=== PATIENT | female | born 1980 | race Caucasian/White ===

== ENCOUNTER → 2019-11-26 10:55 | Outpatient (CLI) | payer OTHER, SELFPAY ==
--- NOTE | ~2019-11-26 | XR_ITS ---
EXAMINATION: XR chest 2V DATE: 11/26/2019 11:13 INDICATION: Cough, central/anterior chest pain, fever TECHNIQUE: Frontal and lateral views of the chest are obtained COMPARISON: None available FINDINGS: The lungs are free of acute opacities. There is no pleural effusion or pneumothorax. The ca rdiomediastinal silhouette is normal. There is lower thoracic levocurvature. IMPRESSION: 1. No acute cardiopulmonary abnormality. Reviewed, dictated and finalized at location B.
== END ==
PROVIDERS: PCP Nurse Practitioner Family; Visit Provider Family Medicine
DX: R05 Cough (principal)
CPT/HCPCS: 71046

== ENCOUNTER 2020-01-23 11:02 | Outpatient (CLI) | payer OTHER, SELFPAY ==
--- NOTE | ~2020-01-23 | CT_ITS ---
EXAMINATION: CT brain wo con DATE: 01/23/2020 11:24 INDICATION: Muscle weakness. Unspecified speech disturbance. Numbness at the fingers. TECHNIQUE: Computed tomography (CT) of the head was performed without intravenous contrast. Sagittal and coronal reconstructions were performed. The mA was adjusted according to patient size. Iterative reconstruction technique was employed. The dose-length product was 605.33 mGy-cm. COMPARISON: None FINDINGS: No acute intracranial hemorrhage, acute infarction or abnormal extra axial fluid collection. Ventricl es are normal and symmetric. No mass/mass effect. The orbits, paranasal sinuses and mastoid air cells are normal. IMPRESSION: 1. Normal head CT. Reviewed, dictated and finalized at location A. IMPRESSION: 1. Normal head CT.
== END 2020-01-23 11:03 | disposition home or self-care (01) ==
PROVIDERS: PCP Nurse Practitioner Family; Visit Provider Nurse Practitioner Family
DX: M79.89 Other specified soft tissue disorders (principal); R47.9 Unspecified speech disturbances
CPT/HCPCS: 70450

== ENCOUNTER 2020-03-10 09:11 | Outpatient (CLI) | payer OTHER, SELFPAY ==
[2020-03-10 09:44] LABS: Basophils Absolute Auto 0.1 K/mm3 (0.0-0.1); Eosinophils Absolute Auto 0.5 K/mm3 (0-0.3); Eosinophils Percent Auto 5.5 % (0-4.4); Hematocrit 42.8 % (37.0-47.0); Hemoglobin 14.1 g/dL (12.0-15.0); Immature Granulocyte Absolute 0.08 K/mm3 (0.00-0.031); Immature Granulocyte Percent A 0.9 % (0-0.5); Lymphocytes Absolute Auto 1.95 K/mm3 (0.9-3.2); Lymphocytes Percent Auto 22.3 % (18.3-44.2); Mean Corpuscular HGB Conc 32.9 g/dl (32-36); Mean Corpuscular Hemoglobin 29.3 pg (26-34); Mean Platelet Volume 9.9 fl (7.4-10.4); Monocytes Absolute Auto 0.6 K/mm3 (0.1-0.6); Monocytes Percent Auto 6.6 % (2.6-8.5); Neutrophils Absolute Auto 5.6 K/mm3 (1.3-6.7); Neutrophils Percent Auto 63.7 % (45.5-73.1); Platelet Count Result 305 k/mm3 (150-375); Red Blood Count 4.81 M/mm3 (4.2-5.4); Red Cell Distribution Width 12.6 % (11.5-14.5); White Blood Count 8.7 K/mm3 (4.5-10.0)
[2020-03-10 12:22] LABS: Add Urine Microscopic? NO; Appearance Urine Clear (Clear); Bilirubin Urine Negative (Negative); Blood Urine Negative (Negative); Color Urine Yellow (Yellow); Glucose Urine UA Negative (Negative); Ketones Urine Negative (Negative); Leukocyte Esterase Ur Negative LEU/UL (Negative); Nitrate Urine Negative (Negative); Protein Urine Negative (Negative); Specific Grav Ur 1.014 (1.001-1.035); Urobilinogen Urine Negative mg/dL (<2.0)
[2020-03-10 12:37] LABS: Alanine Aminotransferase 12 U/L (4-35); Albumin Level 4.4 g/dL (3.5-5.1); Alkaline Phosphatase 64 U/L (38-126); Anion Gap 12.5 mmol/L (7-16); Aspartate Amino Transferase 15 U/L (14-36); Bilirubin,Total 0.2 mg/dL (0.2-1.3); Blood Urea Nitrogen 11 mg/dL (7-17); CRP 0.8 mg/dL (<1.0); Calcium 9.1 mg/dL (8.4-10.2); Carbon Dioxide 24 mmol/L (22-30); Chloride 105 mmol/L (98-107); Estimated Glomerular Filt Rate > 60; Glucose 95 mg/dL (65-105); Potassium 4.5 mmol/L (3.4-5.0); Sodium 137 mmol/L (137-145)
[2020-03-10 12:51] LABS: T4 Thyroxine 7.25 ug/dL (5.53-11.0)
[2020-03-10 13:01] LABS: Complement C3 131 mg/dL (88-165); Rheumatoid Factor < 8.6 IU/ML (<12)
[2020-03-10 13:10] LABS: Erythrocyte Sedimentation Rate 17 mm/hr (0-20)
[2020-03-11 07:26] LABS: Rapid Plasma Reagin Non-Reactive (NonReactive)
[2020-03-13 02:47] LABS: NIL 0.01 IU/mL; Quantiferon TB Plus, 1T NEGATIVE (NEGATIVE)
[2020-03-14 12:03] LABS: Anti Cardio Antibody IgM <12 MPL (<=12); Anti Cardiolipin Antibody IgA <11 APL (<=11); Anti Cardiolipin Antibody IgG <14 GPL (<=14)
[2020-03-14 22:37] LABS: SS-A <1.0; SS-B <1.0
[2020-03-15 05:28] LABS: Thyroglobulin 62.9 ng/mL (2.8-40.9); Thyroglobulin Antibodies <1 IU/mL (<=1); Thyroid Peroxidase Antibodies 15 IU/mL (<9)
[2020-03-15 09:28] LABS: Triiodothyronine T3 Free 2.6 pg/mL (2.3-4.2)
[2020-03-15 14:53] LABS: Anti Cyclic Citrullinated Pept <16 Units (<20)
[2020-03-15 22:43] LABS: Lupus dRVVT 1:1 Mix Interpreta Not Indicated; Lupus dRVVT Screen 40 sec (<=45); PTT-LA Screen 38 sec (<=40)
[2020-03-16 20:17] LABS: ANCA Screen Negative (Negative)
[2020-03-17 05:14] LABS: Angiotensin Converting Enzyme 41 U/L (9-67)
[2020-03-17 21:54] LABS: SM Antibody <1.0; SM/RNP Antibody <1.0
== END 2020-03-10 09:12 | disposition home or self-care (01) ==
LOC: ANHLAB 09:14
PROVIDERS: PCP Nurse Practitioner Family; Visit Provider Internal Medicine
DX: M19.90 Unspecified osteoarthritis, unspecified site (principal); R06.00 Dyspnea, unspecified; R50.9 Fever, unspecified; R76.8 Other specified abnormal immunological findings in serum
CPT/HCPCS: 36415; 80053; 81003; 82164; 84432; 84436; 84481; 85025; 85613; 85652; 85730; 86021; 86140; 86146; 86147; 86160; 86200; 86225; 86235; 86376; 86430; 86480; 86592; 86800

== ENCOUNTER 2020-03-13 14:30 | Outpatient (CLI) | payer OTHER, SELFPAY ==
--- NOTE | ~2020-03-13 | CT_ITS ---
EXAMINATION: CT chest high resolution wo ri DATE: 03/13/2020 14:49 INDICATION: Shortness of breath, cough TECHNIQUE: Computed tomography (CT) of the chest was performed without intravenous contrast. The dose -length product (DLP) was 151.88 mGy-cm. Automated exposure control and iterative reconstruction tech nique were employed. COMPARISON: None FINDINGS: The lungs are free of acute opacities. Right lung nodules measuring up to [address] old granulomatous disease. There is no pleural effusion or pneumothorax. No pathologically enlarge d thoracic lymph nodes are identified. The heart size is normal. The visualized osseous structures ar e unremarkable. IMPRESSION: 1. No CT correlate for the patient's symptoms. Reviewed, dictated and finalized at location B.
== END 2020-03-13 14:31 | disposition home or self-care (01) ==
PROVIDERS: PCP Nurse Practitioner Family; Visit Provider Internal Medicine
DX: R06.00 Dyspnea, unspecified (principal)
CPT/HCPCS: 71250

== ENCOUNTER → 2020-05-28 11:27 | Outpatient (CLI) | payer OTHER, SELFPAY ==
--- NOTE | ~2020-05-28 | US_ITS ---
EXAMINATION: US thyroid DATE: 05/28/2020 12:10 INDICATION: Nontoxic goiter. TECHNIQUE: Multiple ultrasound images of the thyroid were obtained. COMPARISON: None. FINDINGS: The right thyroid lobe measures 5.9 x 2.0 x 2.0 cm. The left thyroid lobe measures 5.5 x 1.8 x 2.0 c m. There is diffuse heterogeneous decreased echogenicity with coarsened echotexture and with mildly i ncreased vascular flow throughout the thyroid. There is a 1.4 x 1.1 x 1.0 cm wider than tall solid hy poechoic nodule with poorly defined margins and without echogenic foci. (TI-RADS 4, moderately suspic ious , FNA if >=1.5 cm, annual followup is >1 cm) at the superior left thyroid lobe. IMPRESSION: 1. 1.4 cm TI-RADS 4 left thyroid nodule for which annual ultrasound follow-up would be recommended. 2. Enlarged heterogeneous and mildly hypervascular thyroid suggestive of thyroiditis. Reviewed, dictated and finalized at location B. IMPRESSION: 1. 1.4 cm TI-RADS 4 left thyroid nodule for which annual ultrasound follow-up w ould be recommended. 2. Enlarged heterogeneous and mildly hypervascular thyroid suggestive of thyroi ditis.
== END ==
PROVIDERS: PCP Nurse Practitioner Family; Visit Provider Internal Medicine Endocrinology, Diabetes & Metabolism
DX: E04.9 Nontoxic goiter, unspecified (principal)
CPT/HCPCS: 76536

== ENCOUNTER 2020-07-06 08:34 | Outpatient (CLI) | payer OTHER, SELFPAY ==
--- NOTE | 2020-07-08 09:56 | P.NEURO_ITS ---
Neurology EEG Report General Information Date of Study: 07/06/20 TEST eeg DIAGNOSIS Memory loss CONDITION OF RECORDING awake drowsy and sleep EEG NUMBER [id number] CLINICAL HISTORY patient reported she was sick back in October and believes it was COVID and now is experiencing brain fog and sometimes trouble in talking EEG DESCRIPTION basic resting occipital frequency consists of low to medium voltage 8 to 10 hertz per 2nd well-organized alpha rhythm admixed with minimal amount of low- voltage 15 to 18 hertz per 2nd beta activity. During drowsiness low-voltage beta activity seen diffusely admixed with waxing and waning posterior alpha rhy thm. Bilateral symmetrical sleep activity seen during sleep hyperventilation not done. Photic stimulation produced normal drive. Non paroxysmal. Nonfocal. Nonlateralizing. IMPRESSION Normal record
== END 2020-07-06 08:35 | disposition home or self-care (01) ==
PROVIDERS: PCP Nurse Practitioner Family; Visit Provider Psychiatry & Neurology Neurology
DX: R41.3 Other amnesia (principal)
CPT/HCPCS: 95816

== ENCOUNTER 2020-07-16 14:00 | Outpatient (CLI) | payer OTHER, SELFPAY ==
--- NOTE | ~2020-07-16 | MR_ITS ---
EXAMINATION: MR brain/brain stem wo con DATE: 07/16/2020 14:59 INDICATION: Memory loss. TECHNIQUE: Magnetic resonance imaging (MRI) of the brain and brainstem was performed without intraven ous contrast. Sequences included sagittal and axial T1-weighted FSE, axial diffusion-weighted FS EPI, axial T2*-weighted GRE, axial T2-weighted FLAIR Propeller, and axial T2-weighted Propeller. Apparent diffusion coefficient (ADC) maps were created. COMPARISON: Head CT 01/23/2020 FINDINGS: There is no intracranial hemorrhage, acute infarction, or abnormal intracranial mass lesion . The ventricles are normal in size. There is mild mucosal thickening in left maxillary sinus. The or bits are normal. The mastoid air cells are normal. IMPRESSION: 1. Normal brain. Reviewed, dictated and finalized at location A. WEAR PRODUCTION MACHINE OPERATOR IMPRESSION: 1. Normal brain.
== END 2020-07-16 14:01 | disposition home or self-care (01) ==
PROVIDERS: PCP Nurse Practitioner Family; Visit Provider Psychiatry & Neurology Neurology
DX: R41.3 Other amnesia (principal)
CPT/HCPCS: 70551

== ENCOUNTER 2020-10-02 12:37 | Outpatient (CLI) | payer OTHER, SELFPAY ==
--- NOTE | 2020-10-05 13:11 | WPDPFTINT ---
PFT Interpretation This is a pulmonary function test with pre and post-bronchodilator spirometry, plethysmography and diffusing capacity. The test was performed and results interpreted in accordance with the 2019 and 2005 ATS/ERS Task Force guidelines respectively using the Hayden/Polgerson reference equations. Findings: Spirometry: The contour of the inspiratory and expiratory flow tracing are normal. The pre bronchodilator FVC is 3.46 L, 92% predicted. The pre bronchodilator FEV1 is 2.77 L, 94% predicted. The FEV1: FVC ratio was 80%. The post bronchodilator FVC is 3.47 L, representing no change. The post bronchodilator FEV1 is 2.78 L, representing no change. Plethysmography: The total lung capacity is 4.59 L, 84% predicted. The residual volume is 1.13 L, 62% predicted. The functional residual capacity is 2.19 L, 77% predicted. Diffusing capacity: The absolute diffusion capacity is 19.9, 79% predicted. The diffusing capacity corrected for alveolar volume is 4.91, 113% predicted. Impression: The spirometry is normal without evidence of an obstructive abnormality. There is no significant improvement after inhaling a single dose of albuterol. The lung volumes are normal. The diffusing capacity is normal. There are no prior studies for comparison
== END 2020-10-02 12:38 | disposition home or self-care (01) ==
LOC: ANHPFT 12:38
PROVIDERS: PCP Nurse Practitioner Family; Visit Provider Nurse Practitioner
DX: J45.909 Unspecified asthma, uncomplicated (principal)
CPT/HCPCS: 94060; 94726; 94729

== ENCOUNTER 2021-03-31 11:54 | Emergency (ER) | payer OTHER, SELFPAY ==
--- NOTE | ~2021-03-31 | XR_ITS ---
EXAMINATION: XR finger 1st RT min 2V DATE: 03/31/2021 12:26 INDICATION: Right thumb pain. Injury. TECHNIQUE: 3 views of right thumb were obtained. COMPARISON: None. FINDINGS: Bone alignment is normal. No fracture. Joint spaces are well maintained. IMPRESSION: 1. Normal right thumb. Reviewed, dictated and finalized at location B. IMPRESSION: 1. Normal right thumb.
[2021-03-31 12:04] VITALS: BP 115/69; PULSE 86; RESP 16; TEMP 37.1; O2SAT 99
--- NOTE | 2021-03-31 13:34 | ED.UPPEXIN ---
HPI - Extremity Injury (Upper) General Chief Complaint: Extremity Injury, Upper Stated Complaint: swolllen rt thumb Source: patient and RN notes reviewed Limitations: no limitations History of Present Illness HPI narrative: The patient, who is right-handed, presents with right thumb pain. Patient states she jammed her thumb a day before, just pushing on a door latch/lock. She complains of mild pain especially of the flexor aspect that is worse with motion, better with rest, and the distal digit rests in a slightly y flexed/hammer position. No bleeding, deformity-there is mild swelling diffusely; discussed regardless of x-ray report that she should wear splint and see hand surgery in follow-up Related Data Home Medications Medication Instructions Recorded Confirmed albuterol sulfate [ProAir HFA] INHALATION 03/31/21 duloxetine mg PO 03/31/21 fluticasone propionate [Flovent INHALATION 03/31/21 HFA] levothyroxine [Tirosint] PO 03/31/21 levothyroxine [Tirosint] PO 03/31/21 omeprazole 03/31/21 Allergies Allergy/AdvReac Type Severity Reaction Status Date / Time ioversol Allergy Unknown rash Verified 03/31/21 12:03 Contrast Media Allergy Mild SNEEZING Uncoded 03/31/21 12:03 Review of Systems Review of Systems: General/Constitutional: No weight loss,fever Eyes: N0: Redness,discharge Ears/Nose/Throat: No: Epistaxis,ear discharge Respiratory: Denies: Hemoptysis Gastrointestinal: No Vomiting, Bleeding-rectal Skin: No Lumps, eruption Neurologic: No Focal Weakness,Sz Hematologic: Denies: Petechiae/Purpura Psychiatric: No: Suicida ideationl All Other Systems: Reviewed and Negative [facility] Past Medical History Medical History (Updated 03/31/21 @ 12:49 by Spenser Wright MD) Allergies MODESTA positive Dyspnea (~02/2020) Head ache Low grade fever Surgical History Surgical History H/O: hysterectomy History of removal of ovarian cyst Family History Family History Mother Multiple sclerosis Depression Anxiety Father High cholesterol Grandparent Alzheimer disease Grandparent Cancer Social History Social History Smoking status: Never smoker Alcohol intake: current Comments At time of signature, agree with nursing past medical, surgical, social and family history. There is no relevant family history pertinent to the presenting complaint Exam Narrative: General Appearance: Well appearing, conjunctiva clear Mouth/Throat: Normal appearing, Normal lips, Supple Respiratory: Airway patent, No respiratory distress MS-finger DIP: Nl strength (mostly intact, almost unlimited flexion/extension by pain), Tenderness (flexor, with mild decreased ROM), Swelling (diffusely), Other (no anterior drawer, no collateral laxity, no ulnar collateral laxity, no snuffbox tenderness] Skin: Warm, Dry, Normal color Neurological: A&O x3, , Normal affect Course Course Emergency Course: Films visualized, interpreted by radiologist, agree, normal see report Vital Signs Vital signs: Vital Signs Temperature 98.8 F 03/31/21 12:04 Pulse Rate 86 03/31/21 12:04 Respiratory Rate 16 03/31/21 12:04 Blood Pressure 115/69 03/31/21 12:04 Pulse Oximetry 99 03/31/21 12:04 Temperature 98.8 F 03/31/21 12:04 Pulse Rate 86 03/31/21 12:04 Respiratory Rate 16 03/31/21 12:04 Blood Pressure 115/69 03/31/21 12:04 Pulse Oximetry 99 03/31/21 12:04 Discharge Plan Discharge Clinical Impression: Jammed interphalangeal joint of finger of right hand Qualifiers: Encounter type: initial encounter Qualified Code(s): S69.91XA - Unspecified injury of right wrist, hand and finger(s), initial encounter Patient Disposition: Home, Self-Care Condition: Stable Instructions: Jammed Finger (ED) Additional Instructions: See h
== END 2021-03-31 12:55 | disposition home or self-care (01) ==
PROVIDERS: Emergency Provider Emergency Medicine; PCP Nurse Practitioner Family
DX: S69.81XA Other specified injuries of right wrist, hand and finger(s), initial encounter (principal); X58.XXXA Exposure to other specified factors, initial encounter; J45.909 Unspecified asthma, uncomplicated; M79.7 Fibromyalgia
CPT/HCPCS: 29130; 73140; 99213; G0463

== ENCOUNTER 2021-10-17 18:45 | Emergency (ER) | payer OTHER, SELFPAY ==
--- NOTE | 2021-10-17 18:50 | ED.CHESTPAIN ---
HPI - Chest Pain General Chief Complaint: Chest Pain Stated Complaint: High blood pressure,High heart Rate Time Seen by Provider: 10/17/21 18:50 Source: patient, family, RN notes reviewed and old records reviewed Mode of arrival: ambulatory Limitations: no limitations History of Present Illness HPI narrative: 41-year-old female presents to the [facility] with complaints of sternal to left-sided chest pain that started yesterday. States she always has shortness of breath since she cannot tell if it is worse. Denies nausea or vomiting. States that her heart rate is higher than her normal. States that she has been checking her Fitbit and normally when she walks across the room it does not go above 100 but states its been in the 110s to 120s. Also reports that her blood pressure was higher than normal and had concern. Reports a chest tightness. MD complaint: chest pain Onset: during rest Related Data Home Medications Medication Instructions Recorded Confirmed albuterol sulfate [ProAir HFA] INHALATION 03/31/21 duloxetine mg PO 03/31/21 fluticasone propionate [Flovent INHALATION 03/31/21 HFA] levothyroxine [Tirosint] PO 03/31/21 levothyroxine [Tirosint] PO 03/31/21 omeprazole 03/31/21 Allergies Allergy/AdvReac Type Severity Reaction Status Date / Time ioversol Allergy Unknown rash Verified 10/17/21 18:58 Contrast Media Allergy Mild SNEEZING Uncoded 10/17/21 18:58 Review of Systems Review of Systems: All systems reviewed & are unremarkable except as noted in HPI and below Constitutional: Constitutional: Reports no additional constitutional complaints, Denies chills and Denies fever(s) Eyes: Eyes: Reports no additional eye complaints ENT: Reports system reviewed and no additional complaints, except as documented Cardiovascular: Cardiovascular: Reports as per HPI, Reports chest pain and Reports rapid heart rate Respiratory: Respiratory: Reports as per HPI, Reports cough and Reports dyspnea Gastrointestinal: Gastrointestinal: Reports no additional gastrointestinal complaints, Denies abdominal pain, Denies nausea and Denies vomiting Musculoskeletal: Musculoskeletal: Reports no additional musculoskeletal complaints Integumentary/Breasts: Skin/Breast: Reports system reviewed and no additional complaints, except as docu Neurologic: Reports system reviewed and no additional complaints, except as documented Psychiatric: Psychiatric: Reports no additional psychiatric complaints Allergic/Immunologic: Allergic/Immunologic: Reports no additional allergic/immunologic complaints PMFSH Past Medical History Medical History Allergies MODESTA positive Dyspnea (~02/2020) Head ache Low grade fever Surgical History Surgical History H/O: hysterectomy History of removal of ovarian cyst Family History Family History Mother Multiple sclerosis Depression Anxiety Father High cholesterol Grandparent Alzheimer disease Grandparent Cancer Social History Social History Smoking status: Never smoker Alcohol intake: current Comments At the time of my signature, I reviewed and agree with the nursing past medical, surgical, social, and family history. There is no relevant family history pertinent to the patient complaint. Exam Const: General: healthy appearing, no acute distress and alert Nutritional Appearance: well nourished Orientation/consciousness: patient oriented x3 Limitations: no limitations HENMT: Head: normal to inspection Ears: external ears normal Eyes: Pupils: Equal, round and reactive pupils present Neck: Neck: normal visual inspection, no lymphadenopathy and no meningeal signs Chest: Chest palpation & inspection: normal inspection of the chest Resp: Effort &
[2021-10-17 18:58] VITALS: BP 142/90; PULSE 110; RESP 18; TEMP 37.3; O2SAT 100
--- NOTE | 2021-10-17 18:59 | ECG_ITS ---
Measurements Intervals [place] Rate: 98 P: 12 [place]: 158 QRS: 38 QRSD: 93 T: 24 QT: 337 QTc: 430 Interpretive Statements SINUS RHYTHM NORMAL ECG NO PREVIOUS ECG AVAILABLE FOR COMPARISON Electronically Signed On 10-18-2021 13:55:53 CUSTOMER SERVICE TRAINER by Dennis Richardson M.D.
[2021-10-17 19:04] VITALS: BP 142/90; PULSE 110; RESP 18; TEMP 37.3; O2SAT 100
== END 2021-10-17 19:05 | disposition short-term general hospital (02) ==
PROVIDERS: Emergency Provider Nurse Practitioner; PCP Nurse Practitioner Family
DX: R06.02 Shortness of breath (principal); R07.9 Chest pain, unspecified
CPT/HCPCS: 93005; 99213; G0463

== ENCOUNTER 2021-10-17 19:13 | Emergency (ER) | payer OTHER, SELFPAY ==
--- NOTE | ~2021-10-17 | XR_ITS ---
EXAMINATION: XR chest 2V 10/17/2021 19:36 INDICATION: Chest pain PROCEDURE: 2 view chest COMPARISON: 11/26/2019 FINDINGS: The lungs are clear. The cardiomediastinal silhouette is within normal limits. There are no pleural effusions. There is no pneumothorax suspected. IMPRESSION: 1: NO ACUTE CARDIOPULMONARY DISEASE. Reviewed, dictated and finalized at location A. PING BENCH DIE MAKER
--- NOTE | ~2021-10-17 | CT_ITS ---
EXAMINATION: CT brain wo con DATE: 10/17/2021 22:32 INDICATION: Confusion. TECHNIQUE: Computed tomography (CT) of the head was performed without intravenous contrast. The mA wa s adjusted according to patient size. Iterative reconstruction technique was employed. The dose-lengt h product was 605.33 mGy-cm. COMPARISON: Head CT 01/23/2020, brain MRI 07/16/2020 FINDINGS: There is no intracranial hemorrhage, acute infarction, or abnormal intracranial mass lesion . The ventricles are normal in size. The orbits are normal. The paranasal sinuses are clear. The mast oid air cells are normal. IMPRESSION: 1. Normal brain. Reviewed, dictated and finalized at location A. NISTRATIVE NURSING SUPERVISOR IMPRESSION: 1. Normal brain.
--- NOTE | 2021-10-17 19:16 | ECG_ITS ---
Measurements Intervals [place] Rate: 101 P: 25 [place]: 151 QRS: 48 QRSD: 91 T: 33 QT: 323 QTc: 419 Interpretive Statements SINUS TACHYCARDIA BORDERLINE ECG COMPARED TO ECG 10/17/2021 18:56:56 SINUS TACHYCARDIA NOW PRESENT Electronically Signed On 10-18-2021 13:57:25 HIGH SCHOOL ASSISTANT FOOTBALL COACH by Dennis Richardson M.D.
[2021-10-17 19:18] VITALS: BP 128/95; PULSE 103; RESP 16; TEMP 37.3; O2SAT 100
[2021-10-17] MEDS: ASPIRIN 81 MG CHEWABLE TABLET 324 MG PO (19:28)
[2021-10-17 19:30] LABS: Basophils Absolute Auto 0.1 K/mm3 (0.0-0.1); Basophils Percent Auto 0.8 % (0.2-1.2); Eosinophils Absolute Auto 0.2 K/mm3 (0-0.3); Eosinophils Percent Auto 1.8 % (0-4.4); Hematocrit 43.5 % (37.0-47.0); Hemoglobin 14.2 g/dL (12.0-15.0); Immature Granulocyte Absolute 0.09 K/mm3 (0.00-0.031); Immature Granulocyte Percent A 0.7 % (0-0.5); Lymphocytes Absolute Auto 2.71 K/mm3 (0.9-3.2); Lymphocytes Percent Auto 21.9 % (18.3-44.2); Mean Corpuscular HGB Conc 32.6 g/dl (32-36); Mean Corpuscular Hemoglobin 29.3 pg (26-34); Mean Corpuscular Volume 89.9 fl (80-100); Mean Platelet Volume 9.7 fl (7.4-10.4); Monocytes Absolute Auto 0.8 K/mm3 (0.1-0.6); Monocytes Percent Auto 6.1 % (2.6-8.5); Neutrophils Absolute Auto 8.5 K/mm3 (1.3-6.7); Neutrophils Percent Auto 68.7 % (45.5-73.1); Platelet Count Result 359 k/mm3 (150-375); Red Blood Count 4.84 M/mm3 (4.2-5.4); Red Cell Distribution Width 13.3 % (11.5-14.5); White Blood Count 12.4 K/mm3 (4.5-10.0)
--- NOTE | 2021-10-17 19:32 | ED.CHESTPAIN ---
HPI - Chest Pain General Chief Complaint: Chest Pain Stated Complaint: left sided chest pain; sob Time Seen by Provider: 10/17/21 19:22 Source: patient Mode of arrival: ambulatory Limitations: no limitations History of Present Illness HPI narrative: Patient is a 41-year-old female who presents to the ED from Urgent Care with complaints of midsternal chest pain X 2-3 days. She reports the pain is located on either side of her sternum, radiates to her right-sided neck, and is aggravated with any sort of movement. She states her PCP prescribed a muscle relaxer for this, which provided minimal relief. Patient also reports having an elevated heart rate at home and an intermittent dry cough x1 week, stating she feels like she has to clear her throat. Heart rate upon arrival to the ED is 103 bpm. She states she just feels off . Patient denies any shortness of breath, pain with inspiration, hemoptysis, BLE pain or edema, congestion, rhinorrhea, sore throat, fever, chills, nausea, vomiting, abdominal pain, back pain, or urinary symptoms. She also denies any recent strenuous activity, hospitalizations/surgeries, immobilizations, or hormonal supplement use. Related Data Home Medications Medication Instructions Recorded Confirmed albuterol sulfate [ProAir HFA] 2 inh INHALATION DIRECTED 03/31/21 10/17/21 duloxetine 60 mg PO DAILY 03/31/21 10/17/21 fluticasone propionate [Flovent 2 inh INHALATION DIRECTED 03/31/21 10/17/21 HFA] levothyroxine [Tirosint] 50 mcg PO DAILY 03/31/21 10/17/21 levothyroxine [Tirosint] 75 mcg PO DAILY 03/31/21 10/17/21 omeprazole 40 mg PO DAILY 03/31/21 10/17/21 Allergies Allergy/AdvReac Type Severity Reaction Status Date / Time ioversol Allergy Unknown rash Verified 10/17/21 18:58 Contrast Media Allergy Mild SNEEZING Uncoded 10/17/21 18:58 Review of Systems Review of Systems: CONSTITUTIONAL: Denies fever, chills, or sweats. ENT: Denies rhinorrhea, congestion, sore throat. CARDIOVASCULAR: Reports bilateral chest wall pain radiating to R sided neck and tachycardia. Denies BLE edema. RESPIRATORY: Reports dry cough. Denies dyspnea, pain with inspiration, hemoptysis. GASTROINTESTINAL: Denies abdominal pain, nausea, vomiting, or diarrhea. GENITOURINARY: Denies dysuria or hematuria. MUSCULOSKELETAL: Denies back pain. NEUROLOGIC: Denies headache, numbness, or weakness. All systems reviewed & are unremarkable except as noted in HPI and below PMFSH Past Medical History Medical History Allergies MODESTA positive Depression Dyspnea (~02/2020) GERD (gastroesophageal reflux disease) Head ache Hypothyroidism Low grade fever Surgical History Surgical History H/O: hysterectomy History of removal of ovarian cyst Family History Family History Mother Multiple sclerosis Depression Anxiety Father High cholesterol Grandparent Alzheimer disease Grandparent Cancer Social History Social History Smoking status: Never smoker Alcohol intake: current Exam Narrative: GENERAL: Mildly ill-appearing, well-nourished, in no acute distress. HEAD: Normocephalic, atraumatic. EYES: PERRL/EOMI, no nystagmus, conjunctive are clear bilaterally NOSE: Normal, no drainage THROAT: Pharynx clear, no exudate. MMs moist. NECK: Supple. No adenopathy, no masses. RESPIRATORY: Airway patent, respirations nonlabored. Clear to auscultation bilaterally, no rales, rhonchi, wheezing. CARDIOVASCULAR: Tachycardia with regular rhythm without murmurs, rubs, or gallops. Peripheral pulses 2+ and equal bilaterally. ABDOMINAL: Soft, nontender, nondistended, no hepatosplenomegaly. Normoactive BS. MUSCULOSKELETAL: Moves all extremities. Strength 5/5/ROM intact in all extremities. No gross deformities or TTP. No edema. N
[2021-10-17 19:39] LABS: INR 0.9; Prothrombin Time 12.2 Seconds (11.1-14.7)
[2021-10-17 19:40] LABS: Alanine Aminotransferase 23 U/L (4-35); Albumin Level 4.7 g/dL (3.5-5.1); Alkaline Phosphatase 88 U/L (38-126); Anion Gap 7 mmol/L (8-16); Aspartate Amino Transferase 23 U/L (14-36); Bilirubin,Total 0.3 mg/dL (0.2-1.3); Blood Urea Nitrogen 9 mg/dL (7-17); Carbon Dioxide 26 mmol/L (22-30); Chloride 104 mmol/L (98-107); Estimated CRCL calculation 114 ml/min; Estimated Glomerular Filt Rate > 60; Glucose 108 mg/dL (65-110); Lipase 53 U/L (23-300); Partial Thromboplastin Time 33.5 SECONDS (22.3-36.8); Potassium 3.8 mmol/L (3.4-5.0); Sodium 137 mmol/L (137-145)
[2021-10-17 19:52] LABS: Troponin I 0.015 ng/mL (0.000-0.034)
[2021-10-17] MEDS: SODIUM CHLORIDE 0.9% IV 1,000 ML 999 ML IV CONT (20:31)
[2021-10-17 20:34] LABS: D Dimer 0.41 ug/mL (<0.48)
[2021-10-17 21:32] LABS: Add Urine Microscopic? YES; Appearance Urine Cloudy (Clear); Bacteria Urine Trace /hpf; Bilirubin Urine Negative (Negative); Blood Urine Negative (Negative); Color Urine Yellow (Yellow); Glucose Urine UA Negative (Negative); Ketones Urine Negative (Negative); Leukocyte Esterase Ur Negative LEU/UL (Negative); Mucus Urine Rare /lpf; Nitrate Urine Negative (Negative); Protein Urine Negative (Negative); RBC Urine 0-2 /hpf (0-2); Specific Grav Ur 1.011 (1.001-1.035); Squamous Epithelial Cell Urine Few /hpf (Few); Urobilinogen Urine Negative mg/dL (<2.0); WBC Urine 0-3 /hpf
[2021-10-17 22:42] LABS: Troponin I 0.015 ng/mL (0.000-0.034)
[2021-10-17 23:23] VITALS: BP 117/89; PULSE 92; RESP 20; O2SAT 99
== END 2021-10-17 23:23 | disposition home or self-care (01) ==
PROVIDERS: Physician Assistant; Emergency Provider Emergency Medicine; PCP Nurse Practitioner Family
DX: R07.89 Other chest pain (principal); K21.9 Gastro-esophageal reflux disease without esophagitis; E03.9 Hypothyroidism, unspecified; R00.0 Tachycardia, unspecified
CPT/HCPCS: 36415; 70450; 71046; 80053; 81001; 83690; 84484; 85025; 85380; 85610; 85730; 93005; 96361; 96374; 99284; A9270; J0131; J7030

== ENCOUNTER 2021-10-29 12:28 | Outpatient (CLI) | payer OTHER, SELFPAY ==
--- NOTE | 2021-10-29 | ECHO_ITS ---
Patient Info Name: Inga Alvarado Age: 41 years : 1980 Gender: Female Ht: 66 in Wt: 180 lbs BSA: 1.97 m2 HR: 99 bpm BP: 111 / 77 mmHg Technical Quality: Good Exam Date: 10/29/2021 12:47 PM Exam Location: [facility] Patient Status: Outpatient Admit Date: 10/29/2021 Staff Ordering Physician: KirillWillie NP Electronic Prepress System Operator: Angelita Mak RDCS Attending Provider: KirillWillie NP Exam Type: CA echo doppler color flow Study Info Indications - tachycardia Complete two-dimensional, color flow and Doppler transthoracic echocardiogram is performed. Summary 1. Complete two-dimensional, color flow and Doppler transthoracic echocardiogram is performed. 2. Left ventricular chamber dimension is normal. 3. Left ventricular systolic function is normal, estimated at 60-65%. 4. The left ventricular diastolic function is grade I diastolic dysfunction. 5. E/e' 6 is not elevated. 6. No pulmonary hypertension, estimated pulmonary arterial systolic pressure is 32 mmHg. Left Ventricle E/e' 6 is not elevated. Left ventricular chamber dimension is normal. Left ventricular systolic function is normal, estimated at 60-65%. The left ventricular diastolic function is grade I diastolic dysfunction. Right Ventricle Right ventricular chamber dimension is normal. Right ventricular systolic function is normal. Left Atria Left atrial chamber dimension is normal. Right Atria Right atrial chamber dimension is normal. Aortic Valve The aortic valve is trileaflet. There is no aortic valve stenosis. There is no aortic valve regurgitation. Pulmonic Valve There is no pulmonic regurgitation. Mitral Valve There is no mitral valve stenosis. There is no mitral valve regurgitation. Tricuspid Valve There is no tricuspid valve regurgitation. No pulmonary hypertension, estimated pulmonary arterial systolic pressure is 32 mmHg. Pericardium/Pleural There is no pericardial effusion. Inferior Vena Cava Normal inferior vena cava with >50% collapse upon inspiration consistent with normal right atrial pressure, 5 mmHg. Aorta The aortic root size at the sinus of Valsalva is normal. Left Ventricular Outflow Tract Name Value Normal LVOT 2D LVOT Diameter 2.0 cm Pulmonic Valve Name Value Normal PV Doppler PV Peak Gradient 2 mmHg Mitral Valve Name Value Normal MV Doppler MV Decel [place] 333 cm/s2 MV PHT 46 ms MV Area (PHT) 4.8 cm2 4.0-5.0 MV Diastolic Function MV E Peak Velocity 53 cm/s
== END 2021-10-29 12:29 | disposition home or self-care (01) ==
LOC: ANHCARD 12:29
PROVIDERS: PCP Nurse Practitioner Family; Visit Provider Nurse Practitioner Family
DX: R00.0 Tachycardia, unspecified (principal)
CPT/HCPCS: 93306

== ENCOUNTER 2021-12-08 15:12 | Emergency (ER) | payer OTHER, SELFPAY ==
--- NOTE | ~2021-12-08 | XR_ITS ---
XR chest 2V DATE: 12/08/2021 16:01 INDICATION: Seizure. Asthma. TECHNIQUE: PA and lateral views COMPARISON: 10/17/2021 2 view chest FINDINGS: Normal heart size. No hilar or mediastinal enlargement. No pulmonary infiltrate or consolid ation, pleural effusion or pulmonary vascular congestion or pneumothorax. Thoracic and lumbar scolios is. IMPRESSION: No active cardiopulmonary disease Reviewed, dictated and finalized at location A.
[2021-12-08 15:14] VITALS: BP 130/87; PULSE 82; RESP 16; TEMP 37; O2SAT 100
[2021-12-08 16:18] LABS: Basophils Absolute Auto 0.1 K/mm3 (0.0-0.1); Basophils Percent Auto 0.6 % (0.2-1.2); Eosinophils Absolute Auto 0.1 K/mm3 (0-0.3); Eosinophils Percent Auto 1.2 % (0-4.4); Hematocrit 43.6 % (37.0-47.0); Hemoglobin 14.2 g/dL (12.0-15.0); Immature Granulocyte Absolute 0.08 K/mm3 (0.00-0.031); Immature Granulocyte Percent A 0.7 % (0-0.5); Lymphocytes Absolute Auto 2.32 K/mm3 (0.9-3.2); Lymphocytes Percent Auto 20.9 % (18.3-44.2); Mean Corpuscular HGB Conc 32.6 g/dl (32-36); Mean Corpuscular Hemoglobin 28.9 pg (26-34); Mean Corpuscular Volume 88.8 fl (80-100); Mean Platelet Volume 9.7 fl (7.4-10.4); Monocytes Absolute Auto 0.6 K/mm3 (0.1-0.6); Monocytes Percent Auto 5.4 % (2.6-8.5); Neutrophils Absolute Auto 7.9 K/mm3 (1.3-6.7); Neutrophils Percent Auto 71.2 % (45.5-73.1); Platelet Count Result 355 k/mm3 (150-375); Red Blood Count 4.91 M/mm3 (4.2-5.4); Red Cell Distribution Width 13.6 % (11.5-14.5); White Blood Count 11.1 K/mm3 (4.5-10.0)
[2021-12-08 16:27] LABS: Ethanol < 10 mg/dL (<10)
[2021-12-08 16:29] LABS: Alanine Aminotransferase 16 U/L (4-35); Albumin Level 4.5 g/dL (3.5-5.1); Alkaline Phosphatase 99 U/L (38-126); Anion Gap 6 mmol/L (8-16); Aspartate Amino Transferase 20 U/L (14-36); Bilirubin,Total 0.3 mg/dL (0.2-1.3); Blood Urea Nitrogen 7 mg/dL (7-17); Calcium 9.2 mg/dL (8.4-10.2); Carbon Dioxide 27 mmol/L (22-30); Chloride 102 mmol/L (98-107); Estimated CRCL calculation 98 ml/min; Estimated Glomerular Filt Rate > 60; Glucose 104 mg/dL (65-110); Potassium 3.9 mmol/L (3.4-5.0); Sodium 135 mmol/L (137-145)
[2021-12-08 16:31] LABS: Add Urine Microscopic? NO; Appearance Urine Clear (Clear); Bilirubin Urine Negative (Negative); Blood Urine Negative (Negative); Color Urine Yellow (Yellow); Glucose Urine UA Negative (Negative); Ketones Urine Negative (Negative); Leukocyte Esterase Ur Negative LEU/UL (Negative); Nitrate Urine Negative (Negative); Protein Urine Negative (Negative); Specific Grav Ur 1.009 (1.001-1.035); Urobilinogen Urine Negative mg/dL (<2.0)
--- NOTE | 2021-12-08 17:11 | ED.NEUROSD ---
HPI - Neuro Symptoms/Deficit General Chief Complaint: Neuro Symptoms/Deficit Stated Complaint: passing out Time Seen by Provider: 12/08/21 15:22 History of Present Illness HPI Narrative: Patient is a 41-year-old female who presents to the ER with concerns for seizure-like activity. Patient had an evening where she was laying down and she locked up. . Has been having to her intermittently over the last 2 years. She had an MRI that was negative. She is scheduled for an EEG this week. Patient reports that she is conscious during the episodes. Today it lasted 45 minutes went usually last 20 minutes so family became concerned and called EMS. No loss of bowel or bladder. No tongue biting. Patient does report to been briefly confused afterwards. Patient is recently been started on amitriptyline to help her with sleep. Patient thinks symptoms are related to COVID but was never diagnosed with COVID but reports she had a prolonged illness 2 years ago that precipitated this as well as some respiratory and cardiac issues for which she has seen physicians. She does not have a formal diagnosis for those other issues however. Related Data Home Medications Medication Instructions Recorded Confirmed albuterol sulfate [ProAir HFA] 2 inh INHALATION DIRECTED 03/31/21 10/17/21 duloxetine 60 mg PO DAILY 03/31/21 10/17/21 fluticasone propionate [Flovent 2 inh INHALATION DIRECTED 03/31/21 10/17/21 HFA] levothyroxine [Tirosint] 50 mcg PO DAILY 03/31/21 10/17/21 levothyroxine [Tirosint] 75 mcg PO DAILY 03/31/21 10/17/21 omeprazole 40 mg PO DAILY 03/31/21 10/17/21 Allergies Allergy/AdvReac Type Severity Reaction Status Date / Time ioversol Allergy Unknown rash Verified 12/08/21 15:19 Contrast Media Allergy Mild SNEEZING Uncoded 10/17/21 18:58 Review of Systems Review of Systems: All systems reviewed & are unremarkable except as noted in HPI and below Constitutional: Constitutional: Denies chills, Denies fever(s) and Denies weakness ENT: Denies nasal congestion and Denies sore throat Cardiovascular: Cardiovascular: Denies chest pain, Denies rapid heart rate and Denies radiating jaw, neck or arm pain Respiratory: Respiratory: Denies cough, Denies dyspnea and Denies wheezing Gastrointestinal: Gastrointestinal: Denies abdominal pain, Denies nausea and Denies vomiting Neurologic: Denies focal weakness and Denies numbness Comments: Seizure PMFSH Past Medical History Medical History Allergies MODESTA positive Depression Dyspnea (~02/2020) GERD (gastroesophageal reflux disease) Head ache Hypothyroidism Low grade fever Surgical History Surgical History H/O: hysterectomy History of removal of ovarian cyst Family History Family History Mother Multiple sclerosis Depression Anxiety Father High cholesterol Grandparent Alzheimer disease Grandparent Cancer Social History Social History Smoking status: Never smoker Alcohol intake: current Exam Narrative: GENERAL: Well-appearing, well-nourished, and in no acute distress. HEAD: Normocephalic, atraumatic. EYES: PERRL and EOMI. ENT: Mucous membranes moist. No evidence of tongue biting. CHEST: Clear to auscultation. No respiratory distress. HEART: Regular rate and rhythm. Normal peripheral pulses. ABDOMEN: Soft, nontender, nondistended. EXTREMITIES: Normal range of motion. No edema. SKIN: Warm, dry, no rash. NEURO: No focal deficits. Alert and oriented x3. PSYCH: Normal mood and affect. Course Course Emergency Course: Results unremarkable. Discussed with Dr. Victoria. Does not recommend starting any antiepileptic medication. Symptoms seem unusual for seizure. May be conversion disorder. Recommends keeping EEG in 2 days and then followi
[2021-12-08 17:17] LABS: Amphetamine Screen Urine Negative (Negative); Barbiturate Screen Urine Negative (Negative); Benzodiazepines Screen Urine Negative (Negative); Cannabinoid Screen Urine Negative (Negative); Cocaine Screen Urine Negative (Negative); Methadone Screen Urine Negative (Negative); Opiate Screen Urine Negative (Negative); Phencyclidine Screen Urine Negative (Negative)
[2021-12-08 19:00] VITALS: BP 117/81; PULSE 87; RESP 16; O2SAT 97
== END 2021-12-08 19:00 | disposition home or self-care (01) ==
PROVIDERS: Emergency Provider Emergency Medicine; PCP Nurse Practitioner Family
DX: R56.9 Unspecified convulsions (principal); K21.9 Gastro-esophageal reflux disease without esophagitis; E03.9 Hypothyroidism, unspecified
CPT/HCPCS: 36415; 71046; 80053; 80307; 81003; 84443; 85025; 99283

== ENCOUNTER 2021-12-10 06:30 | Outpatient (CLI) | payer OTHER, SELFPAY ==
--- NOTE | 2021-12-10 09:49 | WPDNEUROLOGY ---
Neurology EEG Report General Information Date of Study: 12/10/21 TEST EEG DIAGNOSIS transient altered mental status CONDITION OF RECORDING awake drowsy and sleep EEG NUMBER [id number] CLINICAL HISTORY patient reports over the last month she has had 4 episodes of extreme giddiness that last for several hours followed by sleeping for couple of hours and a bad headaches EEG DESCRIPTION basic resting occipital frequency consists of low to medium voltage 8 to 10 hertz per 2nd alpha admixed with low-voltage 15 to 18 hertz per 2nd beta. During drowsiness low-voltage beta activity seen diffusely admixed with waxing and waning posterior alpha rhythm and intermittent 6 to 7 hertz per 2nd theta activity. Bilateral symmetrical sleep activity seen during sleep. Hyperventilation not done. Photic stimulation produced normal drive. Non paroxysmal. Nonfocal. Nonlateralizing. IMPRESSION Normal record
== END 2021-12-10 06:31 | disposition home or self-care (01) ==
LOC: ANHNEURO 06:32
PROVIDERS: PCP Nurse Practitioner Family; Visit Provider Nurse Practitioner Family
DX: R41.82 Altered mental status, unspecified (principal)
CPT/HCPCS: 95816

== ENCOUNTER 2022-06-03 08:28 | Emergency (ER) | payer OTHER, SELFPAY ==
[2022-06-03 08:38] VITALS: BP 133/82; PULSE 80; RESP 18; TEMP 37.4; O2SAT 100
--- NOTE | 2022-06-03 08:53 | ED.URI ---
HPI - URI/Sore Throat General Chief Complaint: Upper Respiratory Infection Stated Complaint: Cough,Bodyaches Time Seen by Provider: 06/03/22 08:53 Source: patient, RN notes reviewed and old records reviewed Mode of arrival: ambulatory Limitations: no limitations History of Present Illness HPI Narrative: 42-year-old female presents to the [facility] with concerns for COVID. Patient reports that she started with a cough yesterday has taken DayQuil. Reports that her son was exposed to COVID at [facility]. Denies fevers. Related Data Home Medications Medication Instructions Recorded Confirmed albuterol sulfate 90 mcg/actuation 2 inh inhalation DIRECTED 03/31/21 06/03/22 aerosol inhaler (ProAir HFA) duloxetine 60 mg capsule,delayed 60 mg PO DAILY 03/31/21 06/03/22 release fluticasone propionate 220 2 inh inhalation DIRECTED 03/31/21 06/03/22 mcg/actuation HFA aerosol inhaler (Flovent HFA) levothyroxine 50 mcg capsule 50 mcg PO DAILY 03/31/21 06/03/22 (Tirosint) levothyroxine 75 mcg capsule 75 mcg PO DAILY 03/31/21 06/03/22 (Tirosint) omeprazole 40 mg capsule,delayed 40 mg PO DAILY 03/31/21 06/03/22 release amitriptyline 25 mg tablet 25 mg DAILY 06/03/22 06/03/22 cyclobenzaprine 10 mg tablet 10 mg PRN PRN Pain 06/03/22 06/03/22 lorazepam 2 mg tablet 2 mg BID 06/03/22 06/03/22 Allergies Allergy/AdvReac Type Severity Reaction Status Date / Time ioversol Allergy Unknown rash Verified 06/03/22 08:59 Contrast Media Allergy Mild SNEEZING Uncoded 06/03/22 08:59 Review of Systems Review of Systems: All systems reviewed & are unremarkable except as noted in HPI and below Constitutional: Constitutional: Reports no additional constitutional complaints, Denies chills and Denies fever(s) Eyes: Eyes: Reports no additional eye complaints ENT: Reports system reviewed and no additional complaints, except as documented Cardiovascular: Cardiovascular: Reports no additional cardiovascular complaints Respiratory: Respiratory: Reports as per HPI and Reports cough Gastrointestinal: Gastrointestinal: Reports no additional gastrointestinal complaints Musculoskeletal: Musculoskeletal: Reports no additional musculoskeletal complaints Integumentary/Breasts: Skin/Breast: Reports system reviewed and no additional complaints, except as docu Neurologic: Reports system reviewed and no additional complaints, except as documented Psychiatric: Psychiatric: Reports no additional psychiatric complaints Allergic/Immunologic: Allergic/Immunologic: Reports no additional allergic/immunologic complaints PMFSH Past Medical History Medical History Allergies MODESTA positive Depression Dyspnea (~02/2020) GERD (gastroesophageal reflux disease) Head ache Hypothyroidism Low grade fever Surgical History Surgical History H/O: hysterectomy History of removal of ovarian cyst Family History Family History Mother Multiple sclerosis Depression Anxiety Father High cholesterol Grandparent Alzheimer disease Grandparent Cancer Social History Social History Smoking status: Never smoker Alcohol intake: current Comments At the time of my signature, I reviewed and agree with the nursing past medical, surgical, social, and family history. There is no relevant family history pertinent to the patient complaint. Exam Const: General: healthy appearing, no acute distress, alert and well nourished Nutritional Appearance: well nourished Orientation/consciousness: patient oriented x3 Limitations: no limitations HENMT: Head: normal to inspection Ears: external ears normal, TM's normal bilaterally and EAC's normal Face/Nose/Sinus: Normal external nose present and Normal nares present Face and sinus: nor
[2022-06-03 20:41] LABS: SARS-CoV-2 RNA PCR Negative
== END 2022-06-03 09:43 | disposition home or self-care (01) ==
PROVIDERS: Emergency Provider Nurse Practitioner; PCP Nurse Practitioner Family
DX: J20.9 Acute bronchitis, unspecified (principal); Z20.822 Contact with and (suspected) exposure to COVID-19; K21.9 Gastro-esophageal reflux disease without esophagitis; E03.9 Hypothyroidism, unspecified; F32.A Depression, unspecified
CPT/HCPCS: 87426; 99213; C9803; G0463; U0003; U0005

== ENCOUNTER 2022-08-27 10:15 | Emergency (ER) | payer OTHER, SELFPAY ==
[2022-08-27 10:23] VITALS: BP 117/77; PULSE 91; RESP 16; TEMP 37.2; O2SAT 99
--- NOTE | 2022-08-27 11:49 | ED.GENADULT ---
HPI - General Adult General Chief complaint: Unspecified Stated complaint: pain in right breast Time Seen by Provider: 08/27/22 11:49 Source: patient, RN notes reviewed and old records reviewed Mode of arrival: ambulatory Limitations: no limitations History of Present Illness HPI narrative: 42-year-old female presents to [facility] accompanied by spouse with complaints right breast pain for a week duration. Patient states she has felt some warmth and she has noticed redness and some swelling to the right breast with no nipple discharge noted. Patient states she has had known previous breast cysts. Patient reports that she has low grade fevers highest temperature noted to be 99.5F. patient reports that she has been taking Aleve and using warm compresses to breast MD complaint: right breast pain Onset (ago): day(s) (6) Severity scale (1-10): 8 Treatments prior to arrival: NSAID and other (warm compresses) Related Data Home Medications Medication Instructions Recorded Confirmed levothyroxine 75 mcg capsule 75 mcg PO DAILY 03/31/21 08/27/22 (Tirosint) amitriptyline 25 mg tablet 25 mg DAILY 06/03/22 08/27/22 Allergies Allergy/AdvReac Type Severity Reaction Status Date / Time ioversol Allergy Unknown rash Verified 08/27/22 10:34 Contrast Media Allergy Mild SNEEZING Uncoded 08/27/22 10:34 Review of Systems Review of Systems: CONSTITUTIONAL: low grade fever, chills, or sweats. EYES: Denies visual changes, redness, or discharge. ENT: Denies rhinorrhea, congestion, sore throat, or otalgia. CARDIOVASCULAR: Denies chest pain, palpitations, or edema. RESPIRATORY: Denies cough or dyspnea. GASTROINTESTINAL: Denies abdominal pain, nausea, vomiting, or diarrhea. GENITOURINARY: Denies dysuria or hematuria. SKIN: Denies rash.reports warmth redness and discomfort to her right breast with some itching MUSCULOSKELETAL: Denies back pain, joint pain, or myalgia. NEUROLOGIC: Denies headache, numbness, or weakness. PSYCHIATRIC: Denies anxiety or depression. All systems reviewed & are unremarkable except as noted in HPI and below PMFSH Past Medical History Medical History Allergies MODESTA positive Depression Dyspnea (~02/2020) GERD (gastroesophageal reflux disease) Head ache Hypothyroidism Low grade fever Surgical History Surgical History H/O: hysterectomy History of removal of ovarian cyst Family History Family History Mother Multiple sclerosis Depression Anxiety Father High cholesterol Grandparent Alzheimer disease Grandparent Cancer Social History Social History Smoking status: Never smoker Alcohol intake: current Comments At time of signature, agree with nursing past medical, surgical, social and family history. There is no relevant family history pertinent to the presenting complaint Exam Narrative: GENERAL: Well-appearing, well-nourished, and in no acute distress. HEAD: Normocephalic, atraumatic. EYES: PERRLA and EOMI. ENT: Nares clear, no rhinorrhea or epistaxis. Mucous membranes moist.TM's normal with good light reflex, throat pink with no lesions or exudates NECK: Supple. no lymphadenopathy CHEST: Clear to auscultation. No respiratory distress.SAO2 99% on room air, right breast with generalized tenderness with no drainage from nipple HEART: Regular rate and rhythm. No murmur heard. Normal peripheral pulses. ABDOMEN: Soft, nontender, nondistended, normal active bowel sounds. EXTREMITIES: Normal range of motion. No edema. SKIN: Warm, dry, no rash. NEURO: No focal deficits. Alert and oriented x3. Course Course Emergency Course: Patient is aware of diagnosis, understands and agrees to treatment plan.? Anticipatory guidance given.? Patient agrees to follow-up as directed and
== END 2022-08-27 12:21 | disposition home or self-care (01) ==
PROVIDERS: Emergency Provider Registered Nurse; PCP Nurse Practitioner Family
DX: N61.0 Mastitis without abscess (principal); K21.9 Gastro-esophageal reflux disease without esophagitis; E03.9 Hypothyroidism, unspecified; F32.A Depression, unspecified
CPT/HCPCS: 99213; G0463

== ENCOUNTER → 2022-09-20 14:43 | Outpatient (CLI) | payer OTHER, SELFPAY ==
--- NOTE | ~2022-09-20 | MM_ITS ---
EXAMINATION: MM screening gokul BI w leigha HISTORY: Screening mammogram TECHNIQUE: Craniocaudal and mediolateral oblique 3-D tomosynthesis images were obtained and synthetic 2-D images were generated. CAD analysis was submitted and interpreted. COMPARISON: 10/08/2018 limited right breast ultrasound examination 02/16/2018 right breast ultrasound guided biopsy and post biopsy mammogram 02/07/2018 bilateral screening mammogram BREAST PARENCHYMAL COMPOSITION: There are scattered areas of fibroglandular density. FINDINGS: New circumscribed low-density approximately 1.6 x 1.9 x 2.6 cm opacity in the central left breast approximately 3.8 cm deep to the nipple, with halo sign. The mammographic features suggest walter ign process, likely a cyst. Targeted ultrasound correlation is recommended. Otherwise there is no evidence of suspicious mass, calcification, or architectural distortion to sugg est malignancy in either breast. There has been no suspicious interval change. IMPRESSION: 1. 1.6 x 1.9 x 2.6 cm circumscribed low-density opacity with halo sign in central left breast 3.8 cm deep to the nipple, likely a benign cyst 2. Targeted left breast ultrasound examination is recommended for confirmation BI-RADS Category 0: Incomplete: Needs additional imaging evaluation. Reviewed, dictated and finalized at location A. [employer] IMPRESSION: 1. 1.6 x 1.9 x 2.6 cm circumscribed low-density opacity with halo sign in centr al left breast 3.8 cm deep to the nipple, likely a benign cyst 2. Targeted left breast ultrasound examination is recommended for confirmation BI-RADS Category 0: Incomplete: Needs additional imaging evaluation.
== END ==
PROVIDERS: PCP Physician Assistant; Visit Provider Physician Assistant
DX: Z12.31 Encounter for screening mammogram for malignant neoplasm of breast (principal); R92.8 Other abnormal and inconclusive findings on diagnostic imaging of breast
CPT/HCPCS: 77063; 77067

== ENCOUNTER → 2022-12-08 10:48 | Outpatient (CLI) | payer OTHER, SELFPAY ==
--- NOTE | ~2022-12-08 | US_ITS ---
US breast BI limited DATE: 12/08/2022 11:19 INDICATION: 1.6 x 1.9 x 2.6 cm circumscribed low-density mammographic opacity with halo sign in centr al left breast on September 20, 2022 screening mammogram examination TECHNIQUE: High-resolution ultrasound imaging of left breast targeted to the mammographic finding in the lower central breast. Ultrasound imaging of right breast at 4:00 periareolar area where the patient reported a palpable lum p, which is reportedly much smaller now COMPARISON: September 20, 2022 bilateral screening mammogram FINDINGS: No suspicious abnormality is identified at right breast 4:00 periareolar area where the pat ient complained of a lump, which she reports is much smaller now. At 12:00 central left breast there is a circumscribed sonolucency measuring 11 x 28 x 27 mm, with thr ough transmission, consistent with simple cyst as suggested mammographically. IMPRESSION: BI-RADS Category 2: Benign Recommendation: Routine mammographic screening Reviewed, dictated and finalized at Location A. Reviewed, dictated and finalized at location A.
== END ==
PROVIDERS: PCP Nurse Practitioner Family; Visit Provider Physician Assistant
DX: R92.8 Other abnormal and inconclusive findings on diagnostic imaging of breast (principal)
CPT/HCPCS: 76642

== ENCOUNTER 2023-06-21 08:44 | Outpatient (CLI) | payer OTHER, SELFPAY | END 2023-06-21 08:45 | disposition home or self-care (01) | PROVIDERS: PCP Nurse Practitioner Family; Visit Provider Family Medicine | DX: H91.93 Unspecified hearing loss, bilateral (principal) | CPT/HCPCS: 92557; 92567 ==

== ENCOUNTER 2023-11-14 08:23 | Outpatient (CLI) | payer OTHER, SELFPAY ==
--- NOTE | ~2023-11-14 | MMUS_ITS ---
EXAMINATION: MM diagnostic gokul RT w leigha, US breast RT limited HISTORY: Probable right breast abnormality for 3 weeks. TECHNIQUE: Additional 3-D tomosynthesis images of the right breast were performed and synthetic 2-D i mages were generated. CAD analysis was submitted and interpreted. High resolution Limited right breas t ultrasound was performed. COMPARISON: 09/20/2022. BREAST PARENCHYMAL COMPOSITION: Dense: The breasts are heterogeneously dense, which may obscure small masses FINDINGS: MAMMOGRAPHIC FINDINGS: There are no suspicious masses, calcifications or architectural distortion in the right breast to sug gest malignancy. ULTRASOUND: Limited right breast ultrasound: In the area palpable concern adjacent to the areola is an irregular fluid collection measuring 3 x 1.3 x 3 cm without posterior features or internal vascularity. IMPRESSION: 1. Complex fluid collection in the right periareolar location without definite mammographic correlate . Consider abscess or posttraumatic/postsurgical seroma. Clinically correlate. 2. Recommend 3 month follow-up right breast ultrasound BI-RADS category 3, probably benign findings. Reviewed, dictated and finalized at location A. IMPRESSION: 1. Complex fluid collection in the right periareolar location without definite mammographic correlate. Consider abscess or posttraumatic/postsurgical seroma. Clinically correlate. 2. Recommend 3 month follow-up right breast ultrasound BI-RADS category 3, probably benign findings.
== END 2023-11-14 08:24 ==
LOC: MICIMG 08:24
PROVIDERS: PCP Family Medicine; Visit Provider Family Medicine
DX: N63.10 Unspecified lump in the right breast, unspecified quadrant (principal); R92.8 Other abnormal and inconclusive findings on diagnostic imaging of breast
CPT/HCPCS: 76642; 77061; 77065; G0279

== ENCOUNTER 2024-01-24 10:37 | Outpatient (CLI) | payer OTHER, SELFPAY ==
--- NOTE | ~2024-01-24 | US_ITS ---
Thyroid ultrasound. Clinical History: Porter's disease Findings: Real-time sonography of the thyroid gland was performed. The right lobe measures 5.5 x 1.8 x 1.7 cm. The left lobe measures 5.0 x 1.5 x 1.8 cm. The isthmus is 2 mm in AP diameter. Thyroid parenchyma is mildly heterogeneous diffusely, without discrete nodule. Impression: Heterogeneous thyroid parenchyma without discrete nodule.. Reviewed, dictated and finalized at location . Impression: Heterogeneous thyroid parenchyma without discrete nodule..
== END 2024-01-24 10:38 ==
LOC: MICIMG 10:37
PROVIDERS: PCP Emergency Medicine; Visit Provider Emergency Medicine
DX: E06.3 Autoimmune thyroiditis (principal)
CPT/HCPCS: 76536

== ENCOUNTER 2024-02-28 12:41 | Emergency (ER) | payer OTHER, SELFPAY ==
[2024-02-28 12:55] VITALS: BP 111/72; PULSE 68; RESP 16; TEMP 36.9; O2SAT 98
--- NOTE | 2024-02-28 13:05 | ED.URI ---
HPI - URI/Sore Throat General Chief Complaint: Upper Respiratory Infection Stated Complaint: COVID test questionable pos,cough,sneezing Time Seen by Provider: 02/28/24 13:05 Source: patient Mode of arrival: ambulatory Limitations: no limitations History of Present Illness HPI Narrative: 43-year-old female presents with complaint of nasal congestion, cough, sneezing for past 2 days. Reports fatigue , low-grade fever, body aches for 3 days. no chest pain or shortness of breath. Took [id number] DayQuil today. Did home COVID test and thought she saw a faint line. All systems reviewed and negative except as noted above. Related Data Home Medications Medication Instructions Recorded Confirmed levothyroxine 75 mcg capsule 75 mcg PO DAILY 03/31/21 02/28/24 (Tirosint) diclofenac sodium 75 mg See Rx Instructions .Route .COMPLEX 02/28/24 02/28/24 tablet,delayed release hydroxychloroquine 200 mg tablet 200 mg PO DAILY 02/28/24 02/28/24 omeprazole 40 mg capsule,delayed 40 mg PO DAILY 02/28/24 02/28/24 release pregabalin 150 mg capsule 150 mg PO DAILY 02/28/24 02/28/24 Allergies Allergy/AdvReac Type Severity Reaction Status Date / Time azathioprine Allergy Intermediate Itching Verified 02/28/24 13:03 Review of Systems Review of Systems: CONSTITUTIONAL: reports fever, chills, or sweats. EYES: Denies visual changes, redness, or discharge. ENT: Reports rhinorrhea, congestion. Denies sore throat, or otalgia. CARDIOVASCULAR: Denies chest pain, palpitations, or edema. RESPIRATORY: reports cough. Denies dyspnea. GASTROINTESTINAL: Denies abdominal pain, nausea, vomiting, or diarrhea. GENITOURINARY: Denies dysuria or hematuria. SKIN: Denies rash or itching. MUSCULOSKELETAL: Denies back pain, joint pain, or myalgia. NEUROLOGIC: Denies headache, numbness, or weakness. PSYCHIATRIC: Denies anxiety or depression. All other systems reviewed are negative, except as documented in HPI. [facility] Past Medical History Medical History Allergies MODESTA positive Depression Dyspnea (~02/2020) GERD (gastroesophageal reflux disease) Head ache Hypothyroidism Low grade fever Surgical History Surgical History H/O: hysterectomy History of removal of ovarian cyst Family History Family History Mother Multiple sclerosis Depression Anxiety Father High cholesterol Grandparent Alzheimer disease Grandparent Cancer Social History Social History Smoking status: Never smoker Alcohol intake: current Comments At time of signature, agree with nursing past medical, surgical, social and family history. There is no relevant family history pertinent to the presenting complaint. Exam Narrative: GENERAL: This is a well-nourished, well-developed patient, ill-appearing but no acute distress HEAD: normocephalic, atraumatic. EYES: PERRL. Sclera clear/white. Vision is grossly intact. EARS: External ears normal, auditory canals clear and without drainage, TMs normal without perforation. Hearing grossly intact. NOSE: External nose normal with congestion, clear nasal drainage, erythema to bilateral nares THROAT: Mucous membranes moist, erythema postnasal drainage NECK: Neck supple, non-tender without lymphadenopathy, masses or thyromegaly. CARDIOVASCULAR: Regular rate and rhythm without murmurs, gallops, or rubs. RESPIRATORY: Clear to auscultation. Breath sounds equal bilaterally. No wheezes, rales, or rhonchi. SKIN: warm, Dry, intact with no suspicious lesions or rash, good texture and turgor. NEURO: awake, alert, and oriented to person, place and time. There were no obvious focal neurologic abnormalities. EXTREMITIES: No joint tenderness, effusion, or edema noted. Course Course [facility]
== END 2024-02-28 13:23 | disposition home or self-care (01) ==
PROVIDERS: Emergency Provider Nurse Practitioner Family; PCP Emergency Medicine
DX: R05.9 Cough, unspecified (principal); J06.9 Acute upper respiratory infection, unspecified; Z20.822 Contact with and (suspected) exposure to COVID-19; K21.9 Gastro-esophageal reflux disease without esophagitis; E03.9 Hypothyroidism, unspecified
CPT/HCPCS: 87426; 99213; G0463

== ENCOUNTER 2024-03-26 10:06 | Outpatient (CLI) | payer OTHER, SELFPAY ==
--- NOTE | ~2024-03-26 | XR_ITS ---
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 TECHNIQUE: 1. Posteroanterior, ulnar deviation, oblique, and lateral views of the left wrist were obtained. 2. Dorsal palmar, oblique and lateral views of the left hand were obtained. 3. Posteroanterior, ulnar deviation, oblique, and lateral views of the right wrist were obtained. 4. Dorsal palmar, oblique and lateral views of the right hand were obtained. COMPARISON: None. FINDINGS: Bilateral ulnar minus variance measuring 3 mm on the right and 4 mm on the left. Alignment of the galen ateral hands and wrists is otherwise normal. No fracture identified. Joint spaces are normal at the bilateral hands and wrists with no erosions to suggest inflammatory arthritis. Soft tissues are unre markable. IMPRESSION: 1. Bilateral ulnar minus variance. Otherwise unremarkable bilateral hand and wrist radiographs with n o evident joint space narrowing or erosions to suggest an inflammatory arthritis. Reviewed, dictated and finalized at location A. IMPRESSION: 1. Bilateral ulnar minus variance. Otherwise unremarkable bilateral hand and wr ist radiographs with no evident joint space narrowing or erosions to suggest an inflammatory arthritis. IMPRESSION: 1. Bilateral ulnar minus variance. Otherwise unremarkable bilateral hand and wr ist radiographs with no evident joint space narrowing or erosions to suggest an inflammatory arthritis. IMPRESSION: 1. Bilateral ulnar minus variance. Otherwise unremarkable bilateral hand and wr ist radiographs with no evident joint space narrowing or erosions to suggest an inflammatory arthritis.
--- NOTE | ~2024-03-26 | XR_ITS ---
EXAMINATION: XR sacroiliac joints min 3V DATE: 03/26/2024 10:55 INDICATION: Inflammatory arthritis TECHNIQUE: Frontal, and left and right oblique views of the sacroiliac joints were obtained. COMPARISON: None. FINDINGS: Bone alignment is normal. Sacral arches are intact. No fractures. Bilateral sacroiliac joint spaces a ppear normal. No evident subarticular sclerosis or erosions to suggest inflammatory arthritis. Modera te hip joint space also appear relatively preserved. IMPRESSION: 1. Normal bilateral hip and sacroiliac joints. Reviewed, dictated and finalized at location A.
== END 2024-03-26 10:07 ==
PROVIDERS: PCP Emergency Medicine
DX: M16.0 Bilateral primary osteoarthritis of hip (principal); M46.1 Sacroiliitis, not elsewhere classified
CPT/HCPCS: 72202; 73110; 73130

== ENCOUNTER 2024-06-28 10:15 | Outpatient (CLI) | payer OTHER, SELFPAY ==
--- NOTE | ~2024-06-28 | US_ITS ---
EXAMINATION: US abdomen complete DATE: 06/28/2024 10:46 INDICATION: Generalized abdominal pain. Nausea. TECHNIQUE: Multiple grayscale and Doppler ultrasound images of the abdomen were obtained. COMPARISON: CT abdomen and pelvis 05/06/2018 FINDINGS: The visualized portions of the head and body of the pancreas are normal. Abdominal aorta is normal in caliber. Inferior vena cava is normal. The liver is normal without focal lesion. There is normal flow in main portal vein. The gallbladder is normal in size. No gallstones or gallbladder wall thickening. There is no sonographic Emery's sign. The common duct is normal and measures 4 mm. The spleen is normal in size. The kidneys are normal in size. IMPRESSION: 1. Normal complete abdomen ultrasound. Reviewed, dictated and finalized at location A. [employer]
== END 2024-06-28 10:16 | disposition home or self-care (01) ==
LOC: MICIMG 10:16
PROVIDERS: PCP Emergency Medicine; Visit Provider Emergency Medicine
DX: R10.9 Unspecified abdominal pain (principal); R11.0 Nausea
CPT/HCPCS: 76700

== ENCOUNTER 2024-07-24 01:27 | Day surgery (SDC) | payer OTHER, SELFPAY ==
[2024-07-03 09:11] VITALS: BMI 29.5
[2024-07-24 06:48] VITALS: BP 102/76; PULSE 67; RESP 20; TEMP 36.1; O2SAT 98
[2024-07-24] MEDS: LACTATED RINGERS 1,000 ML 150 ML IV CONT (06:58)
--- NOTE | 2024-07-24 08:07 | PM.IMHP ---
H&P: HPI History of Present Illness Date/Time: 07/24/24 08:07 Chief Complaint: Epigastric discomfort Narrative: the patient has been experiencing epigastric pain/ discomfort after eating for several months. She was improving with omeprazole, and was he was switched to pantoprazole her symptoms got worse. She also states that when she went back to omeprazole was not the same, she is still having bloating and epigastric discomfort after eating. There is no dysphagia or heartburn and her weight has been stable. Review of Systems Review of Systems: All systems reviewed & are unremarkable except as noted in HPI and below PMFSH Past Medical History Medical History Allergies MODESTA positive Depression Dyspnea (~02/2020) GERD (gastroesophageal reflux disease) Head ache Hypothyroidism Low grade fever Surgical History Surgical History H/O: hysterectomy History of removal of ovarian cyst Family History Family History Mother Multiple sclerosis Depression Anxiety Father High cholesterol Grandparent Alzheimer disease Grandparent Cancer Social History Social History Smoking status: Never smoker Alcohol intake: current Meds Home Medications and Allergies Home Medications ?Medication ?Instructions ?Recorded ?Confirmed ?Type levothyroxine 75 mcg capsule 75 mcg PO DAILY 03/31/21 07/24/24 History (Tirosint) albuterol sulfate 90 mcg/actuation 2 puff inhalation Q4-6H PRN 02/28/24 07/03/24 Rx aerosol inhaler shortness of breath or wheezing #8.5 grams diclofenac sodium 75 mg See Rx Instructions .Route .COMPLEX 02/28/24 07/24/24 History tablet,delayed release hydroxychloroquine 200 mg tablet 200 mg PO DAILY 02/28/24 07/24/24 History omeprazole 40 mg capsule,delayed 40 mg PO DAILY 02/28/24 07/24/24 History release pregabalin 150 mg capsule 150 mg PO DAILY 02/28/24 07/24/24 History cetirizine 10 mg PO DAILY 07/03/24 07/24/24 History cholecalciferol (vitamin D3) 1 tablet PO DAILY 07/03/24 07/24/24 History lorazepam 2 mg tablet 2 mg PO DAILY PRN Seizure Activity 07/03/24 07/03/24 History tofacitinib 11 mg tablet,extended 11 mg PO DAILY 07/03/24 07/24/24 History release 24 hr (Xeljanz XR) Allergies Allergy/AdvReac Type Severity Reaction Status Date / Time azathioprine Allergy Intermediate Itching Verified 07/24/24 06:45 Vital Signs Vital Signs - 24 hr 07/24/24 06:48 Temperature 97 F L Pulse Rate 67 Respiratory Rate 20 Blood Pressure 102/76 Pulse Oximetry 98 Oxygen Delivery Room Air Exam Const: General: cooperative and healthy appearing Resp: Effort & Inspection: normal respiratory effort and able to speak in complete sentences Auscultation: clear to auscultation bilaterally Cardio: Rate: regular rate Rhythm: regular rhythm GI: Inspection: normal to inspection GI Palp: No No hepatosplenomegaly present Auscultation: normal bowel sounds Rectal Exam: deferred Skin: General skin exam: normal color Psych: Appearance: grossly normal Mental Status: mental status grossly normal Assessment and Plan Assessment and plan (1) Dyspepsia: Code(s): R10.13 - Epigastric pain Status: Acute Assessment and Plan: The patient is deemed a good candidate for the procedure. Consent signed. Will proceed.
[2024-07-24 08:33] VITALS: BP 102/67; PULSE 72; RESP 14; O2SAT 99
[2024-07-24 08:43] VITALS: BP 101/71; PULSE 72; RESP 18; O2SAT 100
[2024-07-24 08:53] VITALS: BP 103/64; PULSE 62; RESP 18; O2SAT 100
== END 2024-07-24 09:02 | disposition home or self-care (01) ==
PROVIDERS: PCP Emergency Medicine; Visit Provider Internal Medicine Gastroenterology
PROC: 0DJ08ZZ Inspection of Upper Intestinal Tract, Via Natural or Artificial Opening Endoscopic (ICD-10-PCS; CPT 43235; principal; 2024-07-24 08:00)
DX: K29.30 Chronic superficial gastritis without bleeding (principal); K31.7 Polyp of stomach and duodenum; K21.9 Gastro-esophageal reflux disease without esophagitis; F32.A Depression, unspecified; E03.9 Hypothyroidism, unspecified; Z79.51 Long term (current) use of inhaled steroids; Z98.890 Other specified postprocedural states; Z80.9 Family history of malignant neoplasm, unspecified
CPT/HCPCS: 43239; 88305; J2003; J2704; J7120

== ENCOUNTER 2024-12-17 09:41 | Emergency (ER) | payer OTHER, SELFPAY ==
--- NOTE | 2024-12-17 09:44 | ED.URI ---
HPI - URI/Sore Throat General Chief Complaint: Upper Respiratory Infection Stated Complaint: Cough/Sore Throat Time Seen by Provider: 12/17/24 09:43 Source: patient Mode of arrival: ambulatory Limitations: no limitations History of Present Illness HPI Narrative: Inga is a 44-year-old female patient presenting to the clinic today with complaints of cough nasal congestion, chest congestion, and sore throat times 2-3 days. She reports has felt feverish. Denies any chest pain or shortness of breath. 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 No known exposure to COVID, flu, or strep. Related Data Home Medications ?Medication ?Instructions ?Recorded ?Confirmed ?Last Taken ?Type levothyroxine 75 mcg capsule 75 mcg PO DAILY 03/31/21 07/24/24 07/23/24 History (Tirosint) diclofenac sodium 75 mg See Rx Instructions .Route .COMPLEX 02/28/24 07/24/24 07/23/24 History tablet,delayed release hydroxychloroquine 200 mg tablet 200 mg PO DAILY 02/28/24 07/24/24 07/23/24 History omeprazole 40 mg capsule,delayed 40 mg PO DAILY 02/28/24 07/24/24 07/23/24 History release pregabalin 150 mg capsule 150 mg PO DAILY 02/28/24 07/24/24 07/23/24 History cetirizine 10 mg PO DAILY 07/03/24 07/24/24 07/23/24 History cholecalciferol (vitamin D3) 1 tablet PO DAILY 07/03/24 07/24/24 07/23/24 History lorazepam 2 mg tablet 2 mg PO DAILY PRN Seizure Activity 07/03/24 07/03/24 Unknown History tofacitinib 11 mg tablet,extended 11 mg PO DAILY 07/03/24 07/24/24 07/23/24 History release 24 hr (Xeljanz XR) Allergies Allergy/AdvReac Type Severity Reaction Status Date / Time azathioprine Allergy Intermediate Itching Verified 07/24/24 06:45 Review of Systems Review of Systems: Pertinent positives per HPI. Patient denies any rash, headache, visual changes, dizziness, shortness of breath, chest pain, palpitations, nausea, vomiting, diarrhea, constipation, abdominal pain, or any urinary issues. [facility] Past Medical History Medical History Depression GERD (gastroesophageal reflux disease) Hypothyroidism Low grade fever Dyspnea (~02/2020) MODESTA positive Head ache Allergies Surgical History Surgical History History of removal of ovarian cyst H/O: hysterectomy Family History Family History Mother Multiple sclerosis Depression Anxiety Father High cholesterol Grandparent Alzheimer disease Grandparent Cancer Social History Social History Smoking status: Never smoker Alcohol intake: current Substance use: never Substance use type: does not use Living arrangements: with family Spiritual care concerns: No Comments At the time of my signature, I reviewed and agree with the nursing past medical, surgical, social, and family history. There is no relevant family history pertinent to the patient complaint. Exam Narrative: General: Well-developed, well nourished, in no apparent distress Head: Normocephalic, atraumatic Eyes: Pupils equally round and reactive to light bilaterally, EOM intact, sclera and conjunctive clear, no discharge, lids normal Ears: TMs intact and congested, ear canals ceruminous, no drainage, grossly hearing normal. Nose: Nares patent, clear nasal discharge, no inflammation, no sinus tenderness. Mouth: Oral pharynx red without lesions or masses, good dentition, MMM. Postnasal drip Neck: Supple, trachea midline, no enlargement of anterior or posterior cervical nodes, no thyroid masses or goiter palpable. Cardio: Regular rate and rhythm, s1 and s2 normal, no murmur appreciated. Resp: Clear to auscultation bilaterally, no rhonchi, rales, wheezing or rubs Course Course Emergency Course: Portions of this record may have been created with voice recognition software. Level of Care: Express Care Visit Vital Signs Vital signs: Vital Signs Temperature 37.2 C 12/17/24 10:00 Pulse Rate 74 12/17/24 10:00 Respiratory Rate 18 12/17/24 10:00 Blood Pressure 107/74 12/17/24 10:00 Pulse Oximetry 100 12/17/24 10:00 Oxygen Delivery Room Air 12/17/24 10:00 Temperature 37.2 C 12/17/24 10:00 Pulse Rate 74 12/17/24 10:00 Respiratory Rate 18 12/17/24 10:00 Blood Pressure 107/74 12/17/24 10:00 Pulse Oximetry 100 12/17/24 10:00 Oxygen Delivery Room Air 12/17/24 10:00 Vital signs reviewed MDM - URI/Sore Throat MDM Narrative Medical decision making narrative: At the time of visit patient is resting comfortably on the exam table. Patient appears to be nontoxic. Labs: Strep, COVID, and influenza testing was performed. All testing was negative. We will send strep for culture. Plan: I suspect patient has URI/pharyngitis/viral syndrome. Supportive measures were discussed with the patient and they voiced understanding discharge instructions and agrees to treatment plan. Return precautions reviewed Differential Diagnosis Differential diagnosis: Likely upper respiratory infection, otitis media, sinusitis, viral infection, bronchitis, influenza, pharyngitis and other (COVID) Discharge Plan Discharge Clinical Impression: Upper respiratory infection Qualifiers: URI type: unspecified URI Qualified Code(s): J06.9 - Acute upper respiratory infection, unspecified Pharyngitis Qualifiers: Pharyngitis/tonsillitis etiology: unspecified etiology Qualified Code(s): J02.9 - Acute pharyngitis, unspecified Patient Disposition: Home Condition: Stable Instructions: Antibiotic Form, Pharyngitis (ED), Upper Respiratory Infection (ED), Viral Syndrome (ED) Additional Instructions: May take DayQuil/NyQuil for cold/flu symptoms Increase fluids and stay well hydrated Tylenol/motrin for pain/fever Flonase and OTC antihistamines as directed Vicks vapor rub to open sinuses Sinus rinses for congestion Cepacol spray, cough drops, throat lozenges, warm tea with honey/lemon, gargle salt water to soothe throat BRAT diet for diarrhea Clear liquids x 24 hours then advance as tolerated for nausea/vomiting Go to the ED if you develop a worsening in your condition- high fever not controlled by Tylenol or Motrin, dehydration, weakness, lethargy, shortness of breath, or chest pain. Follow up with your PCP in 3-5 days if symptoms persist. Patient Language: Malawian Prescriptions: No Action levothyroxine [Tirosint] 75 mcg capsule 75 mcg PO DAILY omeprazole 40 mg capsule,delayed release(DR/EC) 40 mg PO DAILY diclofenac sodium 75 mg tablet,delayed release (DR/EC) See Rx Instructions .ROUTE .COMPLEX Rx Instructions: Rx hydroxychloroquine 200 mg tablet 200 mg PO DAILY pregabalin 150 mg capsule 150 mg PO DAILY albuterol sulfate 90 mcg/actuation HFA aerosol inhaler 2 puff inhalation Q4-6H PRN (Reason: shortness of breath or wheezing) Qty: 8.5 0RF Xeljanz XR 11 mg tablet extended release 24 hr 11 mg PO DAILY cetirizine 10 mg PO DAILY cholecalciferol (vitamin D3) 1 tablet PO DAILY lorazepam 2 mg tablet 2 mg PO DAILY PRN (Reason: Seizure Activity) Follow-up/Referrals: Skip Pierce MD [Primary Care Provider] - Stand Alone Forms: Work/School Release IP Time of Disposition: 10:23 Quality NIHSS Nursing Documentation ED NIHSS nursing documentation: reviewed/agree
[2024-12-17 10:00] VITALS: BP 107/74; PULSE 74; RESP 18; TEMP 37.2; O2SAT 100
[2024-12-17 10:41] LABS: EDCOVIDSCREEN Negative (Negative); EDINFLUASCREEN Negative (Negative); EDINFLUBSCREEN Negative (Negative); EDSTREPNEGPOS1 Negative (Negative)
== END 2024-12-17 10:41 | disposition home or self-care (01) ==
PROVIDERS: Emergency Provider Nurse Practitioner Family; PCP Emergency Medicine
DX: J02.9 Acute pharyngitis, unspecified (principal); E03.9 Hypothyroidism, unspecified; K21.9 Gastro-esophageal reflux disease without esophagitis; Z20.822 Contact with and (suspected) exposure to COVID-19
CPT/HCPCS: 87081; 87426; 87804; 87880; 99213; G0463

== ENCOUNTER 2025-03-08 08:23 | Emergency (ER) | payer OTHER, SELFPAY ==
[2025-03-08 08:35] VITALS: BP 110/73; PULSE 66; RESP 18; TEMP 36.4; O2SAT 99
--- NOTE | 2025-03-08 08:47 | ED_ITS ---
HPI - URI/Sore Throat General Chief Complaint: Upper Respiratory Infection Stated Complaint: Sore Throat Time Seen by Provider: 03/08/25 08:55 Source: patient, RN notes reviewed and old records reviewed Mode of arrival: ambulatory Limitations: no limitations History of Present Illness HPI Narrative: 44-year-old female presents to the [facility] with complaints of a sore throat since , 2 days. Reports headache and nausea associated with it. Has taken Tylenol. Denies fevers. No airway compromise. Maintaining own secretions Onset (ago): day(s) (2) Related Data Home Medications ?Medication ?Instructions ?Recorded ?Confirmed ?Last Taken ?Type levothyroxine 75 mcg capsule 75 mcg PO DAILY 03/31/21 07/24/24 07/23/24 History (Tirosint) diclofenac sodium 75 mg See Rx Instructions .Route .COMPLEX 02/28/24 07/24/24 07/23/24 History tablet,delayed release hydroxychloroquine 200 mg tablet 200 mg PO DAILY 02/28/24 07/24/24 07/23/24 History omeprazole 40 mg capsule,delayed 40 mg PO DAILY 02/28/24 07/24/24 07/23/24 History release pregabalin 150 mg capsule 150 mg PO DAILY 02/28/24 07/24/24 07/23/24 History cetirizine 10 mg PO DAILY 07/03/24 07/24/24 07/23/24 History cholecalciferol (vitamin D3) 1 tablet PO DAILY 07/03/24 07/24/24 07/23/24 History lorazepam 2 mg tablet 2 mg PO DAILY PRN Seizure Activity 07/03/24 07/03/24 Unknown History tofacitinib 11 mg tablet,extended 11 mg PO DAILY 07/03/24 07/24/24 07/23/24 History release 24 hr (Xeljanz XR) Allergies Allergy/AdvReac Type Severity Reaction Status Date / Time azathioprine Allergy Intermediate Itching Verified 03/08/25 08:30 Review of Systems Review of Systems: All systems reviewed & are unremarkable except as noted in HPI and below Constitutional: Constitutional: Reports no additional constitutional complaints ENT: Reports as per HPI and Reports sore throat Cardiovascular: Cardiovascular: Reports no additional cardiovascular complaints, Denies chest pain and Denies dyspnea Respiratory: Respiratory: Reports no additional respiratory complaints, Denies chest congestion, Denies cough and Denies dyspnea Musculoskeletal: Musculoskeletal: Reports no additional musculoskeletal complaints Integumentary/Breasts: Skin/Breast: Reports system reviewed and no additional complaints, except as docu [facility] Past Medical History Medical History Depression GERD (gastroesophageal reflux disease) Hypothyroidism Low grade fever Dyspnea (~02/2020) MODESTA positive Head ache Allergies Surgical History Surgical History History of removal of ovarian cyst H/O: hysterectomy Family History Family History Mother Multiple sclerosis Depression Anxiety Father High cholesterol Grandparent Alzheimer disease Grandparent Cancer Social History Social History Smoking status: Never smoker Alcohol intake: current Substance use: never Substance use type: does not use Living arrangements: with family Spiritual care concerns: No Comments At the time of my signature, I reviewed and agree with the nursing past medical, surgical, social, and family history. There is no relevant family history pertinent to the patient complaint. Exam Const: General: cooperative, no acute distress, well developed, alert, tired appearing, uncomfortable and well nourished; No ill appearing Nutritional Appearance: well nourished Orientation/consciousness: patient oriented x3 Limitations: no limitations HENMT: Head: normal to inspection Ears: hearing grossly normal bilaterally, external ears normal, TM's normal bilaterally, EAC's normal, mastoids normal and no periauricular adenopathy Face and sinus: normal facial exam, sinuses nontender and face symmetric Throat: uvula midline and uvular edema (mild with erythema) Eyes: General: appearance normal, both eyes and all related structures Alignment and Position: alignment normal Neck: Neck: normal visual inspection, full ROM, no lymphadenopathy and no meningeal signs Chest: Chest palpation & inspection: normal inspection of the chest Resp: Effort & Inspection: normal respiratory effort and able to speak in complete sentences Auscultation: clear to auscultation bilaterally, no crackles, no rales, no rhonchi and no wheezes Cardio: Rate: regular rate Skin: General skin exam: normal color and no rashes or lesions noted Neuro: General: patient oriented x3, gait normal, moves all extremities and no meningeal signs Cognition (Neuro): normal cognition Speech: normal speech Gait exam (Neuro): Normal gait present Extrem: General: normal to inspection, full ROM, capillary refill normal and normal gait Psych: Appearance: grossly normal and well kempt Mental Status: mental status grossly normal Speech and movement: Normal speech and movement present and Clear speech present Affect: normal affect Attitude: cooperative Course Course Level of Care: Express Care Visit Vital Signs Vital signs: Vital Signs Temperature 97.5 F L 03/08/25 08:35 Pulse Rate 66 03/08/25 08:35 Respiratory Rate 18 03/08/25 08:35 Blood Pressure 110/73 03/08/25 08:35 Pulse Oximetry 99 03/08/25 08:35 Oxygen Delivery Room Air 03/08/25 08:35 Temperature 97.5 F L 03/08/25 08:35 Pulse Rate 66 03/08/25 08:35 Respiratory Rate 18 03/08/25 08:35 Blood Pressure 110/73 03/08/25 08:35 Pulse Oximetry 99 03/08/25 08:35 Oxygen Delivery Room Air 03/08/25 08:35 Reviewed MDM - URI/Sore Throat MDM Narrative Medical decision making narrative: Patient sitting in exam room. Patient is nontoxic, vitals are stable. Patient appears uncomfortable. Patient presents 2 day history of a sore throat, headache. Has taken Tylenol. Strep is negative, will culture. Flu and COVID were negative. Erythema with mild edema noted to the uvula with no airway compromise, m aintaining own secretions. Patient is appropriate for outpatient treatment with signs and symptoms discussed to go to the emergency room which she verbalized understand Discharge instructions reviewed with patient, as well as provided in writing per nursing staff. The instructions also include specific and strict return/GO TO THE ER as well as f/u information. All questions have been answered, and the patient deny any further questions with discharge and discharge plan. Some parts of this dictation were generated by voice recognition software and may contain typographical and/or grammatical inaccuracies. Differential Diagnosis Differential diagnosis: Likely upper respiratory infection, otitis media, sinusitis, viral infection, bronchitis, influenza and pharyngitis Lab Data Labs: Lab Results 03/08/25 03/08/25 Range/Units 08:32 09:00 POC Influenza A Ag Negative (Negative) POC Influenza B Ag Negative (Negative) POC SARS CoV-2 Ag Negative (Negative) POC Grp A Strep Screen Negative (Negative) Reviewed Critical Care Time Critical Care Time Critical Care Time: No Discharge Plan Discharge Clinical Impression: Uvulitis Patient Disposition: Home Condition: Stable Instructions: Antibiotic Form, Uvulitis (ED) Additional Instructions: Take antibiotics as prescribed for the full 10 days. Take steroids as prescribed * Gargling with warm salt water:?Mix 1 teaspoon of salt in 1 cup of warm water and gargle several times a day.? * [id number] throat sprays or lozenges:?Can help soothe throat pain.? * Pain relievers:?Acetaminophen (Tylenol), ibuprofen (Advil, Motrin), or naproxen (Aleve) can help manage pain and inflammation.? Use per package instructions * Plenty of fluids:?Staying hydrated can help soothe the throat.? * Avoid irritants:?Smoking and secondhand smoke can worsen uvulitis.? Alternate Motrin and Tylenol per package instructions as needed for pain. Follow-up with primary care provider For new or worsening symptoms such as trouble breathing, severe pain, worsening pain please go directly to the emergency room. Patient Language: Iraqi Prescriptions: New amoxicillin-pot clavulanate 875-125 mg tablet 1 tablet PO Q12H Qty: 20 0RF prednisone 20 mg tablet 40 mg PO DAILY 5 Days Qty: 10 0RF No Action levothyroxine [Tirosint] 75 mcg capsule 75 mcg PO DAILY omeprazole 40 mg capsule,delayed release(DR/EC) 40 mg PO DAILY diclofenac sodium 75 mg tablet,delayed release (DR/EC) See Rx Instructions .ROUTE .COMPLEX Rx Instructions: Rx hydroxychloroquine 200 mg tablet 200 mg PO DAILY pregabalin 150 mg capsule 150 mg PO DAILY albuterol sulfate 90 mcg/actuation HFA aerosol inhaler 2 puff inhalation Q4-6H PRN (Reason: shortness of breath or wheezing) Qty: 8.5 0RF Xeljanz XR 11 mg tablet extended release 24 hr 11 mg PO DAILY cetirizine 10 mg PO DAILY cholecalciferol (vitamin D3) 1 tablet PO DAILY lorazepam 2 mg tablet 2 mg PO DAILY PRN (Reason: Seizure Activity) Follow-up/Referrals: Kenrick,ESTEFANÍA Templeton [Primary Care Provider] - Time of Disposition: 09:26
[2025-03-08 08:59] LABS: EDSTREPNEGPOS1 Negative (Negative)
[2025-03-08 09:29] LABS: EDCOVIDSCREEN Negative (Negative); EDINFLUASCREEN Negative (Negative); EDINFLUBSCREEN Negative (Negative)
== END 2025-03-08 09:32 | disposition home or self-care (01) ==
PROVIDERS: Emergency Provider Nurse Practitioner; PCP Nurse Practitioner Family
DX: K12.2 Cellulitis and abscess of mouth (principal); Z20.822 Contact with and (suspected) exposure to COVID-19; E03.9 Hypothyroidism, unspecified; K21.9 Gastro-esophageal reflux disease without esophagitis
CPT/HCPCS: 87081; 87426; 87804; 87880; 99213; G0463